=== PATIENT | female | born 1985 | race Caucasian/White ===

== ENCOUNTER → 2021-04-22 | Outpatient (CLI) | payer OTHER ==
--- NOTE | 2021-04-22 15:51 | KCIC ---
MRI of the lumbar spine without contrast 04/22/2021 CLINICAL HISTORY: Chronic low back pain intermittently for several years. New left leg numbness. TECHNIQUE: Unenhanced T1-weighted and T2-weighted sagittal and axial and inversion recovery sagittal images of the lumbar spine were obtained. FINDINGS: Very mild S-shaped curvature of the thoracolumbar spine is seen. Degenerative signal change s and loss of height are seen involving the L3-4, L4-5 and L5-S1 discs. Degenerative signal changes a re seen within the marrow surrounding these discs. The conus medullaris is normal morphology, positio n, and signal characteristics. A 2 cm perineural cyst is seen within the sacral spinal canal. The L1-2 and L2-3 disc spaces are within normal limits. At the L3-4 disc space there is a mild generalized disc bulge. A left paracentral extruded disc fragm ent from the L4-5 disc space (discussed below) is seen. This measures 5 mm in AP diameter. Degenerati ve changes are seen involving the facet joints bilaterally. There is mild ligamentum flavum hypertrop hy bilaterally. These findings when combined results in moderate to severe left lateral central spina l canal stenosis. No neural foraminal stenosis is seen. At the L4-5 disc space there is a moderate generalized disc bulge. Superimposed on this disc bulge is a central/left paracentral focal disc herniation. This extrudes superiorly throughout the L4 level t o the L3-4 disc space. The extruded disc fragment measures 3.5 x 1.4 x 1.0 and craniocaudal, transver se and AP dimensions. Degenerative changes are seen involving the facet joints bilaterally. There is a small left facet joint effusion. There is mild to moderate ligamentum flavum hypertrophy. These fin dings when combined result in moderate to severe left greater than right central spinal canal stenosi s at the level of the L4-5 disc space. No neural foraminal stenosis is seen. The extruded disc fragme nt results in moderate to severe left greater than right central spinal canal stenosis throughout the L4 level and moderate to severe left lateral central spinal canal stenosis at the L3-4 level. At the L5-S1 disc space there is a mild generalized disc bulge. Superimposed on this disc bulge is a central/right paracentral focal disc protrusion. This measures 3 mm in AP diameter. Degenerative lincoln ges are seen involving the facet joints bilaterally. There is mild ligament flavum hypertrophy bilate rally. These findings when combined results in mild right greater than left central spinal canal sten osis. No neural foraminal stenosis is seen. IMPRESSION: The changes of degenerative disc disease are seen involving the mid and lower lumbar spin e. At the L4-5 disc space a central/left paracentral focal disc herniation is seen which extrudes sup eriorly to the L3-4 level as a large extruded disc fragment. This contributes to moderate to severe l eft lateral central spinal canal stenosis at the L3-4 level, moderate to severe left greater than rig ht central spinal canal stenosis throughout the L4 level and moderate to severe left greater than rig ht central spinal canal stenosis at the L4-5 level. Electronically signed by: Lalo Stanford MD (04/22/2021 3:49 PM) [id number]
== END ==
LOC: KCIC MRI 10:50
PROVIDERS: ATTEND Family Medicine
DX: M51.36 Other intervertebral disc degeneration, lumbar region (principal); M51.37 Other intervertebral disc degeneration, lumbosacral region; M48.07 Spinal stenosis, lumbosacral region; G03.8 Meningitis due to other specified causes; G96.191 Perineural cyst; M47.817 Spondylosis without myelopathy or radiculopathy, lumbosacral region; M54.32 Sciatica, left side
CPT/HCPCS: 72148